=== PATIENT | male | born 1990 | race Caucasian/White ===

== ENCOUNTER 2021-01-26 11:09 | Outpatient (REF) | payer OTHER, SELFPAY | END 2021-01-26 11:10 | disposition home or self-care (01) | LOC: HO.LAB 11:09 | PROVIDERS: Visit Provider Internal Medicine | DX: Z20.822 Contact with and (suspected) exposure to COVID-19 (principal) | CPT/HCPCS: C9803; U0003; U0005 ==

== ENCOUNTER 2024-06-07 11:01 | Outpatient (AMB) | payer OTHER, SELFPAY ==
--- NOTE | 2024-06-07 11:11 | A.OFFPC_ITS ---
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 The patient has no significant medical history and does not take any medications. He notes a tendency to make unhealthy dietary choices and does not engage in structured exercise, although he engages in a lot of walking for work purposes. He reports smoking two cigarettes per day for the past one to two years, primarily during work breaks. He denies vaping. Alcohol consumption includes drinking three to four beers approximately one weekend per month. Oc casional marijuana use is reported, about once a month, in small quantities, typically a pre-roll. Last dental visit was over a year ago, and he has a routine eye exam scheduled in a couple of weeks at [facility]. The patient could not recall his last tetanus vaccination but estimates that it has been many years since his last physical examination, which was likely for a job requirement rather than a routine check-up. 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 - Exercise: Primarily involves a lot of walking during work. - Tobacco Use: Smokes two cigarettes per day for the past one to two years. - Alcohol Use: Consumes three to four be ers approximately one weekend per month. - Marijuana Use: Occasionally uses marij uana, about once a month. - Nutrition: Reports unhealthy dietary c hoices and no participation in structured exercise. - Weight Management: Weighs 286 pounds w ith a BMI of 39.9. Health Maintenance - Encouraged to schedule a routine denta l care appointment. - Regular eye exam scheduled in two week s. - Tetanus and influenza vaccine overdue; patient declined vaccination. - Discussed referral to a dietitian for weight management. - Recommended lifestyle modifications in cluding healthy dietary choices and increased physical activity. - Smoking cessation discussed, although patient smokes only two cigarettes per day. - Routine lab work and urinalysis advise d before the next visit. - Bloodwork to include complete blood co unt, electrolyte panel, kidney and liver function tests, lipid panel, and thyroid function. 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 1. Little interest or pleasure in doing things: several days 2. Feeling down, depressed, or hopeless: several days 3. Trouble falling or staying asleep, or sleeping too much: several days 4. Feeling tired or having little energy: more than half the days 5. Poor appetite or overeating: nearly every day 6. Feeling bad about yourself - or that you are a failure or have let yourself or your family down: not at all 7. Trouble concentrating on things, such as reading the newspaper or watching television: several days 8. Moving or speaking so slowly that other people could have noticed. Or the opposite - being so fidgety or restless that you have been moving around a lot more than usual: not at all 9. Thoughts that you would be better off or of hurting yourself in some way: not at all Total score: 9 Depression Screening Interpretation: Positive Depression Screening Done: Yes Source: Developed by Drs. Remy Greer, Jacquelin Ruiz, Mt Haider and colleagues, with an educational cecy from [employer]. Thrive Questionnaire Date Thrive assessed: 06/07/24 I am a: Patient What is your living situation today?: I have a steady place to live Within the past 12 months, did the food you bought not last and you didn't have the money to get more?: Never true Within the past 12 months, did you worry whether your food would run out before you got money to buy more?: Never true Do you have trouble paying for medicines?: No Do you have trouble getting transportation to medical appointments?: No Do you have trouble paying your heating and electricity bill?: No Do you have trouble taking care of your child, family member or friend?: No Do you have trouble with day-to-day activities such as bathing, preparing meals, shopping, managing finances, etc.?: No Are you currently unemployed and looking for a job?: No Are you interested in more education?: No Please select the resources that you would like help with: Food Currently or been in a relationship where the following occur: No concerns reported THRIVE Score: 0 AUDIT C Alcohol Use Questionnaire (AUDIT-C) 1. How often do you have a drink containing alcohol?: 2-4 times a month 2. How many drinks containing alcohol do you have on a typical day when you are drinking?: 3 or 4 3. How often do you have six or more drinks on one occasion?: Monthly Total Score: 5 Score Reviewed/Action Taken: Yes BRITTNI-7 AMB Questionnaire BRITTNI-7 Date BRITTNI - 7 assessed: 06/07/24 Feeling nervous, anxious, or on edge: 1 = Several days Not being able to stop or control worryin = Not at all Worrying too much about different things: 0 = Not at all Trouble relaxin = Several days Being so restless that it is hard to sit still: 0 = Not at all Becoming easily annoyed or irritable: 1 = Several days Feeling afraid as if something awful might happen: 0 = Not at all Total BRITTNI-7 score (0-4 normal; 5-9 mild; 10-14 moderate; 15-21 severe): 3 Source: Developed by Drs. Remy Greer, Jacquelin Ruiz, Mt Haider and colleagues, with an educational cecy from [employer]. BRITTNI-7 Assessment Billing BRITTNI-7 Assessment Tool: BRITTNI-7 Assessment 05969 Review of Systems Const Details: Denies chills, Denies fatigue, Denies fever(s), Denies headache(s) and Denies weakness HEENT Denies change in vision, Denies dizziness, Denies headache(s), Denies hearing loss, Denies nasal congestion, Denies sinus pain, Denies sinus pressure and Denies sore throat Card Denies chest pain, Denies lightheadedness, Denies dyspnea and Denies other (palpitations) Resp Denies cough, Denies dyspnea and Denies wheezing GI Denies abdominal pain, Denies melena, Denies hematochezia, Denies change in bowel habits, Denies dyspepsia and Denies nausea Denies hematuria and Denies dysuria Musc Denies abnormal gait, Denies myalgias, Denies arthralgias, Denies numbness and Denies tingling Skin/Breast Denies rash, Denies unusual bruising and Denies wounds Neuro Denies abnormal gait, Denies dizziness, Denies headache(s), Denies memory loss, Denies numbness, Denies Sensory deficit (Neuro), Denies tingling and Denies weakness Psych Denies anxiety, Denies depression and Denies memory loss Endo Denies cold intolerance, Denies fatigue, Denies heat intolerance, Denies polydipsia and Denies polyuria Ronald/Lymph Denies easy bleeding and Denies easy bruising Aller/Immun Denies wheezing Physical exam (Primary Care) Vital Signs: Last Vital Signs Temp 98.4 F 06/07/24 11:18 Pulse 77 06/07/24 11:18 Resp 16 06/07/24 11:18 BP 127/78 06/07/24 11:18 Pulse Ox 97 06/07/24 11:18 Oxygen Delivery Method Room Air 06/07/24 11:18 BMI result Body Mass Index 39.9 Tobacco/Smoking Status: Tobacco use Status Tobacco use date assessed 06/07/24 06/07/24 11:17 Patient Tobacco Use Status Current everyday Tobacco 06/07/24 11:17 e-Cigarette/Vaping Use Never Used 06/07/24 11:17 PHQ-9: PHQ-9 Score PHQ-9: Total score 9 06/07/24 11:14 Depression Screening Interpretation: Positive Thrive Assessment: Date of Thrive Assessment Date Thrive assessed 06/07/24 06/07/24 11:14 Currently or been in a relationship where the following occur: No concerns reported Const Other: General: no acute distress, well developed, alert and awake Nutritional Appearance: well nourished Orientation/consciousness: patient oriented x3 [facility] Head: Yes normocephalic and Yes atraumatic Ears: hearing grossly normal bilaterally and TM's normal bilaterally General nose exam: Normal external nose present and Normal nares present Mouth: Normal oral and palatal mucosa present and moist mucous membranes Teeth and gingiva: dentition normal Throat: Yes oropharynx normal Eyes Pupils: Equal, round and reactive pupils present and Pupil accommodation reflex normal EOM: EOMs intact bilaterally Neck Neck: Yes normal visual inspection, Yes no lymphadenopathy and Yes trachea midline Thyroid: Thyroid normal Carotids: no bruits Lymphatic: no lymphadenopathy noted Chest Chest palpation & inspection: normal inspection of the chest Resp Effort & Inspection: normal respiratory effort Auscultation: clear to auscultation bilaterally Cardio Rate: regular rate Rhythm: regular rhythm Heart sounds: S1 normal heart sound present, S2 normal heart sound present, no gallops, no murmurs and no rubs Bruits: no abdominal aortic bruits and no carotid bruits GI Palpation (GI): No Abdominal aortic bruit present, Soft to palpation, nontender, No hepatosplenomegaly present and No Rebound tenderness present Auscultation: normal bowel sounds General: Yes no CVA tenderness Back/Spine/Pelvis Back: no CVA tenderness Cervical Spine: cervical ROM normal and No Cervical spine tenderness Thoracic/Lumbar Spine: thoraco-lumbar ROM normal, No pain with thoraco-lumbar ROM, No thoracic spinal tenderness and No lumbar spinal tenderness Skin General: warm and dry. Normal skin color. Normal skin turgor Lesions: no lesions Rashes: no rashes Trauma: no lacerations or abrasions Wounds: no wounds Nails: normal Neuro General: patient oriented x3, gait normal and CN's II-XI intact bilaterally Cranial nerves: Yes Equal, round and reactive pupils present Cognition (Neuro): normal cognition Gait exam (Neuro): Normal gait present Motor exam (neuro): 5/5 motor strength present throughout Sensory Exam: No Sensory deficit (Neuro) Deep tendon reflexes (DTR's): Right patellar reflex intensity grade: 2+ and Left patellar reflex intensity grade: 2+ Extrem General: Yes normal to inspection, No edema and No calf tenderness Psych Appearance: grossly normal Affect: normal affect Attitude: cooperative Thought process: Normal thought process present Coding Level of Care Code New Pt Prev Care 18-39yr(47757 Diagnoses Normal physical examination, routine Z00.00 Tobacco use Z72.0 Alcohol use F10.90 Marijuana use F12.90 Healthcare maintenance Z00.00 Obesity (BMI 30-39.9) E66.9 Laboratory tests ordered as part of a complete physical exam (CPE) Z00.00 Additional Codes BRITTNI-7 Assessment Billing - BRITTNI-7 Assessment Tool: BRITTNI-7 Assessment 39454 ([id number]) Assessment & Plan Assessment & Plan (1) Normal physical examination, routine: Code(s): Z00.00 - Encounter for general adult medical examination without abnormal findings Category: Medical Plan: No significant functional limitation noted. (2) Tobacco use: Code(s): Z72.0 - Tobacco use Category: Social Hx Plan: Smoking cessation was discussed, though only occasional smoking reported; no medication deemed necessary at this time. (3) Alcohol use: Code(s): F10.90 - Alcohol use, unspecified, uncomplicated Category: Social Hx Plan: Discussions held on the frequency and quantity; no intervention planned currently. (4) Marijuana use: Code(s): F12.90 - Cannabis use, unspecified, uncomplicated Category: Social Hx Plan: Plan as above. (5) Healthcare maintenance: Code(s): Z00.00 - Encounter for general adult medical examination without abnormal findings Category: Medical Plan: Routine bloodwork and urinalysis ordered before the subsequent visit; recommended follow-up in two to three weeks to review test results. (6) Obesity (BMI 30-39.9): Code(s): E66.9 - Obesity, unspecified Category: Medical Plan: Referral to a dietitian for dietary guidance and encouragement of lifestyle modifications including regular exercise and healthy eating. (7) Laboratory tests ordered as part of a complete physical exam (CPE): Code(s): Z00.00 - Encounter for general adult medical examination without abnormal findings Category: Medical Plan: Fasting labs ordered as part of a complete physical exam. Advised to fast for at least 10 hours before getting labs drawn. May drink water Verbalized understanding and agreed with treatment plan. Plan During today's visit, we discussed the importance of baseline health maintenance and necessary lifestyle changes. We reviewed tobacco, alcohol, and marijuana consumption, with attention towards harm reduction particularly pertaining to cigarette smoking. The patient has agreed to a dietitian referral for weight management and is encouraged to adopt healthier lifestyle habits, including increased physical activity and improved dietary choices. We thoroughly discussed current smoking habits, included risks associated with smoking, and provided grief counsellor on the benefits of cessation. I emphasized the importance of regular health check-ups, dental care, and vaccinations as preventive measures. A follow-up appointment was advised in two to three weeks for review of lab results and to monitor progress with lifestyle modifications. Orders: Orders Complete Blood Count Auto Diff Today Z00.00 - Encounter for general adult medical examination without abnormal findings Lipid Panel Today Z00.00 - Encounter for general adult medical examination without abnormal findings Comprehensive [place]. Panel Fast Today Z00.00 - Encounter for general adult medical examination without abnormal findings TSH reflex Free T4 Today Z00.00 - Encounter for general adult medical examination without abnormal findings UA CC w/rflx Micro + Cult Today Z00.00 - Encounter for general adult medical examination without abnormal findings Referrals Nutrition/Dietitian Referral E66.9 - Obesity, unspecified Patient Instructions: - Schedule routine dental care and follow your upcoming eye exam. - Follow up with the dietitian referral provided for dietary guidance. - Engage in regular exercise and make healthier dietary choices. - Consider smoking cessation and reduce alcohol intake. - Complete required lab work and urinalysis as instructed, at least two to three days prior to the next appointment. - Schedule a follow-up appointment in two to three weeks to discuss the lab results and any other concerns. - Seek care sooner if new symptoms or health concerns develop. - Avoid fast food, processed foods, and sugary drinks, focusing instead on whole-grain, fruits, and vegetables. - Discuss any vaccine hesitancy with me during future visits. Patient was informed and verbally consented to the use of an ambient scribe for clinic note documentation during this visit.
[2024-06-07 11:18] VITALS: BP 127/78; PULSE 77; RESP 16; TEMP 36.9; O2SAT 97; BMI 39.9
== END 2024-06-07 12:28 | disposition home or self-care (01) ==
PROVIDERS: Visit Provider Nurse Practitioner Family
DX: Z00.00 Encounter for general adult medical examination without abnormal findings (principal); Z72.0 Tobacco use; F10.90 Alcohol use, unspecified, uncomplicated; F12.90 Cannabis use, unspecified, uncomplicated; E66.9 Obesity, unspecified

== ENCOUNTER → 2024-06-07 11:01 | Outpatient (BNVA) | payer OTHER, SELFPAY | PROVIDERS: Visit Provider Nurse Practitioner Family | DX: Z00.00 Encounter for general adult medical examination without abnormal findings (principal); F10.90 Alcohol use, unspecified, uncomplicated; F12.90 Cannabis use, unspecified, uncomplicated; E66.9 Obesity, unspecified; Z68.39 Body mass index [BMI] 39.0-39.9, adult; F17.210 Nicotine dependence, cigarettes, uncomplicated | CPT/HCPCS: 96127 ==

== ENCOUNTER 2024-06-24 09:52 | Outpatient (AMB) | payer OTHER, SELFPAY ==
[2024-06-24 10:08] VITALS: BMI 39.4
--- NOTE | 2024-06-24 10:08 | A.OFFVIS_ITS ---
VS Expanded 06/24/24 10:08 06/24/24 10:17 Height 5 ft 11 in 5 ft 11 in Weight 282 lb 10.122 oz 283 lb BMI 39.4 39.5 Intake Visit Reasons: Obesity/CONF Allergies No Known Allergies Allergy (Verified 06/07/24 11:24) Nutrition Presentation Details: Pt presents for MNT for obesity. Pt was referred by PCP Pt reports having tried fasting in the past and exercising however has stopped related to diff schedule eating out often fast food types of meals beverages: 16 oz coffee 3 creamers , water physical activity walking as routine food frequency fish:not including, enjoys fruits:not including, enjoys dairy >4/d fried foods: daily BS Monitoring Most Recent Diabetes Results: No Data to Display XMA-Wjwfixu-Ec.Jeor Equation Height: 5 ft 11 in Weight: 283 lb Resting Metabolic Rate: 2237.39 Calculated Activity Level: Mild Activity Calories Needed to Maintain Weight: 3076.41 Diagnosis Nutrition problem #1: food nutri know defi As related to (etiology) #1: diagnosis As evidenced by (sign/symptom) #1: knowledge deficit of diet [facility] Social History (Updated 06/07/24 @ 11:22 by Socorro Boykin) Housing: House Patient Tobacco Use Status: Current everyday Tobacco user Cigarette Packs Per Day: 0 Cigarettes Per Day: 2 Years Smoked: 2 e-Cigarette/Vaping Use: Never Used Second Hand Smoke Exposure: No Substance Use Type: Marijuana service: No Current occupational status: employed 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 Current occupational exposures/hazards: No Cognitive needs: No Hearing needs: No Vision needs: Yes Assessment & Plan Assessment & Plan (1) Obesity (BMI 30-39.9): Code(s): E66.9 - Obesity, unspecified Category: Medical Plan: Wt: 128 Kg ( 07/09 ) Est kcal needs as per MSJ: 3100 (40% carb, 30% protein/fat) Est fluid needs as per 25-30 ml/d: 3900 Est prot per day as per 1 g/kg bw: 128 Recommend fiber intake : 8-10 g per day and gradually increase to 25-28 g per day for women and 35-38 g for men or as tolerated Recommend sodium intake per day : less than 2300 mg Educated patient on: ( R = reviewed V = verbalizes understanding N/R = needs review N/A = not applicable * Food sources of carbohydrate, adequate serving sizes and its role in various health conditions: R * Differences between complex carbohydrates a simple carbohydrates, role of fiber in diet: R * Lean protein sources of foods: R * Differences between types of fats and role in diet (mono on saturated fat fatty acids, saturated fatty acids, trans fats): R basic * Food sources of sodium in salt and healthy modifications for heart health in kidney health: R V R/V * Vitamins and minerals: R V N/R * Healthy plate method concept: R V N/R * Physical activity: Bets brodie precaution: R Patient Instructions: Work on reducing fried foods Include fish meal at least twice a week - lunch continue having water with meals/snacks see meal ideas as reference gradual weight loss 2-4 lbs less per month Coding Level of Care Code Nutr Indiv Intake (52508) Diagnoses Obesity (BMI 30-39.9) E66.9 Time Spent (min) 30
[2024-06-24 10:17] VITALS: BMI 39.5
== END 2024-06-24 10:46 | disposition home or self-care (01) ==
PROVIDERS: Visit Provider Dietitian, Registered
DX: E66.9 Obesity, unspecified (principal)

== ENCOUNTER → 2024-06-24 09:52 | Outpatient (BNVA) | payer OTHER, SELFPAY | PROVIDERS: Visit Provider Dietitian, Registered | DX: E66.9 Obesity, unspecified (principal); Z68.39 Body mass index [BMI] 39.0-39.9, adult; Z71.3 Dietary counseling and surveillance | CPT/HCPCS: 97802 ==

== ENCOUNTER 2024-06-24 10:57 | Outpatient (REF) | payer OTHER, SELFPAY ==
[2024-06-24 11:20] LABS: MANUAL DIFF FLAG NO
[2024-06-24 12:01] LABS: Basophils Absolute Auto 0.1 X10*3/uL (0.0-0.2); Basophils Percent Auto 0.6 % (0-2); Eosinophils Absolute Auto 0.1 X10*3/uL (0.0-0.4); Eosinophils Percent Auto 1.1 % (0-4); Hematocrit 45.1 % (42.0-52.0); Imm Gran Abs Auto 0.03 X10*3/uL (0.00-0.03); Imm Gran Pct Auto 0.4 % (0.0-0.4); Lymphocytes Absolute Auto 3.1 X10*3/uL (1.2-4.9); Lymphocytes Percent Auto 39.8 % (20-40); Mean Corpuscular HGB Conc 33.3 g/dl (31.0-36.0); Mean Corpuscular Hemoglobin 29.1 pg (27.0-33.0); Mean Corpuscular Volume 87.6 fL (80.0-98.0); Mean Platelet Volume 10.2 fL (9.4-12.4); Monocytes Absolute Auto 0.5 X10*3/uL (0.1-1.2); Monocytes Percent Auto 5.8 % (2-11); Neutrophils Absolute Auto 4.1 x10*3/uL (2.0-8.3); Neutrophils Percent Auto 52.3 % (45-73); Platelet Count 261 X10*3/uL (160-400); Red Blood Count 5.15 X10*6/uL (4.60-5.80); Red Cell Distribution Width 12.4 % (11.0-16.0); White Blood Count 7.9 X10*3/uL (4.8-10.8)
[2024-06-24 12:21] LABS: Appearance Urine Clear; Color Urine Yellow; Glucose Urine UA Negative (Negative); Leukocyte Esterase Urine Negative (Negative); Nitrite Urine Negative (Negative); PH 5.5 (5.0-9.0); Specific Gravity - Urine >= 1.030 (1.005-1.025); Urine Blood Negative (Negative); Urine Ketones Trace mg/dL (Negative); Urine Protein Negative (Neg-Trace)
[2024-06-24 12:59] LABS: Alanine Aminotransferase 64 U/L (0-40); Albumin Level 4.6 g/dL (3.5-5.0); Alkaline Phosphatase 66 U/L (39-117); Anion Gap 11 (12-20); Aspartate Amino Transferase 34 U/L (5-37); Bilirubin Total 0.7 mg/dL (0.0-1.0); Blood Urea Nitrogen 11 mg/dL (9-16); Calcium 9.9 mg/dL (8.4-10.2); Carbon Dioxide 30 mmol/L (22-29); Chloride 106 mmol/L (96-108); Cholesterol 276 mg/dL (<200); Estimated Glomerular Filt Rate > 60; Glucose Fasting 87 mg/dL (60-99); HDL Cholesterol 41 mg/dL (>40); LDL Cholesterol Calculated 209 mg/dL (<100); Potassium 4.1 mmol/L (3.3-5.1); Sodium 143 mmol/L (135-145); Triglycerides 132 mg/dL (<150)
[2024-06-24 13:06] LABS: TSH reflex Free T4 0.87 uIU/mL (0.32-4.0)
== END 2024-06-24 10:58 | disposition home or self-care (01) ==
LOC: HO.LAB 10:57
PROVIDERS: PCP Nurse Practitioner Family; Visit Provider Dietitian, Registered
DX: Z00.00 Encounter for general adult medical examination without abnormal findings (principal); Z13.6 Encounter for screening for cardiovascular disorders
CPT/HCPCS: 36415; 80053; 80061; 81003; 84443; 85025

== ENCOUNTER 2024-06-28 11:56 | Outpatient (AMB) | payer OTHER, SELFPAY ==
--- NOTE | 2024-06-28 11:54 | MHC.PC.OV ---
Intake Visit Reasons: Telehealth 2-3 wks labs Intake Note: patient here for telehealth follow up for lab review Cooler Worker Required: No Allergies No Known Allergies Allergy (Verified 06/28/24 11:54) Tobacco use date assessed: 06/28/24 Dental Screening Dental Screen Date: 06/07/24 HPI HPI Comments History of Present Illness Details 34-year-old male presents for telehealth visit for review of recent lab results. He notes that he consumes significant amount of meat and cheese but has been improving his diet since he establish care with his PCP last month. He offers no complaints and denies acute symptoms at this time. 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 Remy Greer, Jacquelin Ruiz, Mt Haider and colleagues, with an educational cecy from [employer]. Review of Systems Const Details: Const Denies chills, Denies fatigue, Denies fever(s), Denies headache(s) and Denies weakness ENT Denies dizziness and Denies headache(s) Card Denies chest pain, Denies lightheadedness, Denies dyspnea and Denies other (Palpitations) Resp Denies cough, Denies dyspnea, Denies wheezing and Denies other ( shortness of breath) GI Denies abdominal pain, Denies melena, Denies hematochezia, Denies change in bowel habits, Denies dyspepsia and Denies nausea Denies hematuria and Denies dysuria Musc Denies abnormal gait, Denies myalgias, Denies arthralgias, Denies numbness and Denies tingling Skin/Breast Denies rash, Denies unusual bruising and Denies wounds Neuro Denies abnormal gait, Denies dizziness, Denies headache(s), Denies memory loss, Denies numbness, Denies Sensory deficit (Neuro), Denies tingling and Denies weakness Psych Denies anxiety, Denies depression, Denies memory loss Endo Denies cold intolerance, Denies fatigue, Denies heat intolerance, Denies polydipsia and Denies polyuria Aller/Immun Denies wheezing Physical exam (Primary Care) Tobacco/Smoking Status: Tobacco use Status Tobacco use date assessed 06/28/24 06/28/24 11:57 Patient Tobacco Use Status Current everyday Tobacco 06/28/24 11:57 e-Cigarette/Vaping Use Never Used 06/28/24 11:57 Thrive Assessment: Date of Thrive Assessment Date Thrive assessed 05/31/24 06/28/24 11:57 Const Other: Telehealth visit. No physical exam. Telehealth Telehealth Telehealth Platform: Telephone Location of provider rendering services: practice address Location of patient: address on file Patient Identification confirmed using: Name, : Yes Telehealth method: voice only Patient verbally consented to treatment: Yes Patient verbally consented to billing insurance company: Yes Patient informed of any privacy concerns related to visit: Yes Coding Level of Care Code Tele Est Pt Level 3 (12189) Diagnoses Hypercholesterolemia E78.00 Elevated ALT measurement R74.01 Time Spent (min) 10 Assessment & Plan Assessment & Plan (1) Hypercholesterolemia: Code(s): E78.00 - Pure hypercholesterolemia, unspecified Category: Medical Plan: Recent total cholesterol and LDL levels are elevated, 276 and 209 respectively. Advised to limit foods high in saturated fat and avoid foods high in trans fat. Routine exercise encouraged. May referred to dietitian or weight management as needed. Fast for 10-12 hours, may drink water, and get lipid panel blood work done 2-3 days before next visit. Follow-up for telehealth visit in 2 months or sooner with symptoms or concerns. Verbalized understanding and agreed with treatment plan. (2) Elevated ALT measurement: Code(s): R74.01 - Elevation of levels of liver transaminase levels Category: Medical Plan: Recent ALT level is elevated, 64. Hepatic steatosis is likely. Routine exercise and healthy diet, including limiting fatty foods, encouraged. Will check lipid panel level periodically or if symptomatic. Verbalized understanding and agreed with the plan. Orders: Orders Lipid Panel 2 Months E78.00 - Pure hypercholesterolemia, unspecified
== END 2024-06-28 12:51 | disposition home or self-care (01) ==
LOC: HO.HMCFM 11:56
PROVIDERS: PCP Nurse Practitioner Family; Visit Provider Nurse Practitioner Family
DX: E78.00 Pure hypercholesterolemia, unspecified (principal); R74.01 Elevation of levels of liver transaminase levels